=== PATIENT | female | born 1995 | race Caucasian/White ===

== ENCOUNTER 2016-11-27 13:13 | Inpatient (IN) | payer MEDICAID ==
[~2016-11-27] VITALS: Ht 157.5 cm; Wt 65.0 kg
[2016-11-27 13:49] VITALS: Ht 157.5 cm; Wt 65.0 kg
[2016-11-27 13:50] VITALS: BP 106/59; PULSE 99; RESP 18
[2016-11-27] MEDS ORDERED: OXYTOCIN 30 UNITS/LR 500 ML IV SCH ×2 (14:00)
[2016-11-27] MEDS ORDERED: OXYTOCIN 30 UNITS/LR 500 ML IV PRN (14:00)
[2016-11-27] MEDS ORDERED: IBUPROFEN 600 MG TAB PO PRN (14:00)
[2016-11-27] MEDS ORDERED: CARBOPROST 250 MCG INJ IM PRN (14:00)
[2016-11-27] MEDS ORDERED: BUTORPHANOL 2 MG INJ IV PRN (14:00)
[2016-11-27] MEDS ORDERED: METHYLERGONOVINE 0.2 MG INJ IM PRN (14:00)
[2016-11-27] MEDS ORDERED: MISOPROSTOL 200 MCG TAB PR PRN (14:00)
[2016-11-27] MEDS ORDERED: LACTATED RINGER'S 1,000 ML IV PRN (14:00)
[2016-11-27] MEDS ORDERED: LIDOCAINE 1% (MPF) 30 ML INJ INJ PRN (14:00)
[2016-11-27] MEDS: LACTATED RINGER'S 1,000 ML IV SCH ×2 (15:00→21:43)
[2016-11-27 15:17] LABS: BASOPHILS % 0.3 % (0.0-2.0); EOSINOPHILS # 0.1 10^3/ul (0.0-0.5); EOSINOPHILS % 0.7 % (0.0-7.0); HEMATOCRIT 28.3 % (37.0-47.0); HEMOGLOBIN 9.2 g/dl (12.0-16.0); LYMPHOCYTES # 1.6 10^3/ul (0.8-2.9); LYMPHOCYTES % 21.5 % (15.0-51.0); MEAN CORPUSCULAR HGB CONC 32.5 g/dl (32.0-37.0); MEAN CORPUSCULAR VOLUME 79.9 fl (82.0-101.0); MEAN PLATELET VOLUME 10.4 fl (7.4-10.4); MONOCYTE # 0.5 10^3/ul (0.3-0.9); MONOCYTES % 6.6 % (0.0-11.0); NEUTROPHIL # 5.3 10^3/ul (1.6-7.5); NEUTROPHILS % 70.2 % (39.0-77.0); PLATELET COUNT 195 10^3/UL (140-415); RED BLOOD COUNT 3.54 10^6/ul (4.20-5.40); RED CELL DISTRIBUTION WIDTH 14.3 % (11.5-14.5); WHITE BLOOD COUNT 7.5 10^3/ul (4.8-10.8)
[2016-11-27 15:31] LABS: INR 1.04; PROTIME 13.6 Sec (12.2-14.2); PT RATIO 1.1
[2016-11-27 15:32] LABS: PARTIAL THROMBOPLASTIN TIME 22.2 Sec (25.0-35.0)
[2016-11-27] MEDS ORDERED: DINOPROSTONE 10 MG VAG SUPP VAG ONE (16:00)
[2016-11-28] MEDS: LACTATED RINGER'S 1,000 ML IV SCH ×3 (05:18→23:01)
[2016-11-28] MEDS: OXYTOCIN 30 UNITS/LR 500 ML IV SCH ×2 (05:30→21:06)
--- NOTE | 2016-11-28 17:20 | HP ---
Date/Time of Note Date/Time of Note DATE: 11/28/16 TIME: 16:31 OB - History Hx of Present Free Text/Dictation 21 years old female 1 0 2 01, 39 weeks and 2 days admitted to [facility] for induction of labor suspected suspected poor growth, on admission pelvic examination, cervix 1 cm dilated 50% effaced vertex at -3 station, this patient has been under the care of the [facility] and aside from poor growth her was not complicated with gestational diabetes or -induced hypertension. 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 Chief Complaint: Induction of labor for poor growth Estimated Due Date: Dec 02, 2016 : 4 Para: 1 Spontaneous : 2 Care: Good Care Ultrasounds: Normal mid trimester US Obstetrical Complications: None Medical Complications: None Past Family/Social History * Past Medical, Surgical, Family and Obstetric Histories reviewed from chart. Rubella: immune RPR/VDRL: Negative GBS Status: Negative HBsAG: Negative OB Admission Exam Vital Signs Vital Signs Vital Signs Date Time Temp Pulse Resp B/P Pulse Ox O2 Delivery O2 Flow Rate FiO2 11/27/16 13:50 98.1 99 18 106/59 Room Air Physical Exam HEENT: WNL Heart: Rhythm Normal Lungs: Clear, Equal Abdomen: WNL Extremities: Normal Reflexes: Normal Cervical Dilatation: 1cm Effacement: 50% Station: -3 Membranes: Intact Heart Rate: 130's Accelerations: Accelerations Present Decelerations: No Decelerations Varibility: Moderate Last 72 hours Lab Results CBC & BMP 11/27/16 15:00 OB Assessment/Plan Reason for admission: induction of labor Plan: Other (Induction discussed with the patient to be induced by Cervidil vaginal insertion once cervical dilatation at three centimeters Pitocin IV infusion will follow) Induction Method: other (21 years old 9 weeks and 2 days admitted for induction for poor growth plan of Cervidil induction to follow with Pitocin IV infusion discussed with the patien complications of induction intolerance to induction all her questions answered she would like to proceed with the plan of induction) ANTON KAUFMAN MD Nov 28, 2016 17:10
--- NOTE | 2016-11-28 21:13 | QN ---
Documentation Comment PATIENT WAS ADMITTED FOR INDUCTION FOR RESTRICTED GROWTH CERVIDIL X1 F/B PITOCIN 3/50%/-2 ARM CLEAR START PITOCIN ZIGGY RAZA MD Nov 28, 2016 21:13
[2016-11-28] MEDS ORDERED: AZITHROMYCIN 250 MG TAB PO ONE (21:30)
--- NOTE | 2016-11-29 03:56 | LDN ---
Date/Time of Note Date/Time of Note DATE: 11/29/16 TIME: 03:53 Delivery Summary Weeks of Gestation [id number] Placenta Delivered: Spontaneously Meconium: none Episiotomy: No Perineal laceration: 0 Anesthesia type: None Estimated blood loss: 100 Sponge & Needle done & correct: Yes All needle counts correct: Yes Any foreign bodies felt in the: No Problems: Delivery Information Sex Infant Sex: female Apgars 1 Minute: 9 5 Minute: 9 Suctioning Nose & mouth suctioned at ronal: Yes Delee suction performed: No Umbilical Cord Umbilical cord with: 3 Vessels Cord presentations: no nuchal cord Cord Blood was obtained: Yes Mother & Baby Disposition Disposition Mom & Baby to Maternity; Good: Yes Mom transferred to: Other Baby to NICU: No () ZIGGY RAZA MD Nov 29, 2016 03:56
[2016-11-29] MEDS ORDERED: OXYTOCIN 30 UNITS/LR 500 ML IV PRN (04:30)
[2016-11-29] MEDS ORDERED: METHYLERGONOVINE 0.2 MG INJ IM PRN (04:30)
[2016-11-29] MEDS ORDERED: ZOLPIDEM 5 MG TAB PO PRN (04:30)
[2016-11-29] MEDS ORDERED: WITCH HAZEL/GLYCERIN PAD PR PRN (04:30)
[2016-11-29] MEDS ORDERED: LANOLIN 7 GM TUBE TOP PRN (04:30)
[2016-11-29] MEDS ORDERED: OXYCODONE/ASPIRIN (4.88/325) TAB PO PRN ×2 (04:30)
[2016-11-29] MEDS ORDERED: CARBOPROST 250 MCG INJ IM PRN (04:30)
[2016-11-29] MEDS ORDERED: BENZOCAINE 20% 56 ML SPRAY TOP PRN (04:30)
[2016-11-29] MEDS ORDERED: MISOPROSTOL 200 MCG TAB PR PRN (04:30)
[2016-11-29 04:45] VITALS: BP 116/70; PULSE 65; RESP 20
[2016-11-29] MEDS: IBUPROFEN 600 MG TAB PO SCH ×4 (05:30→23:33)
[2016-11-29 08:00] VITALS: BP 110/57; PULSE 66; RESP 18
[2016-11-29] MEDS: SENNA/DOCUSATE NA (8.6MG/50MG) TAB PO SCH ×2 (08:48→20:52)
--- NOTE | 2016-11-29 14:10 | DS ---
Date/Time of Note Date/Time of Note DATE: 11/29/16 TIME: 14:08 Discharge Summary Admission/Discharge Info Admit Date/Time Nov 27, 2016 at 13:13 Discharge Date/Time November 29, 2016 at 1410 Discharge Diagnosis Day 2 post normal vaginal delivery Patient Condition: Good Procedures Normal vaginal delivery Hx of Present Illness Term in labor Hospital Course Satisfactory uneventful Follow-up Plan instruction given recommended patient to make appointment to be seen at the clinic in 2 weeks Primary Care Provider Care Physician No Primary Time spent on discharge: < 30 minutes ANTON KAUFMAN MD Nov 29, 2016 14:10
--- NOTE | 2016-11-29 14:12 | PD.PPDC ---
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
[2016-11-29] MEDS ORDERED: INFLUENZA VIRUS VACCINE 0.5 ML SYG IM* ONE (15:00)
[2016-11-29 15:35] VITALS: BP 95/54; RESP 18
[2016-11-29 19:40] VITALS: BP 108/58; PULSE 70; RESP 18
[2016-11-30 04:10] VITALS: BP 94/54; PULSE 63; RESP 18
[2016-11-30] MEDS: IBUPROFEN 600 MG TAB PO SCH ×4 (05:36→23:53)
[2016-11-30 08:00] VITALS: BP 107/63; RESP 18
[2016-11-30 08:17] LABS: BASOPHILS % 0.1 % (0.0-2.0); EOSINOPHILS # 0.1 10^3/ul (0.0-0.5); HEMATOCRIT 23.1 % (37.0-47.0); HEMOGLOBIN 7.3 g/dl (12.0-16.0); LYMPHOCYTES % 29.5 % (15.0-51.0); MEAN CORPUSCULAR HEMOGLOBIN 25.6 pg (29.0-33.0); MEAN CORPUSCULAR HGB CONC 31.6 g/dl (32.0-37.0); MEAN CORPUSCULAR VOLUME 81.1 fl (82.0-101.0); MEAN PLATELET VOLUME 10.4 fl (7.4-10.4); MONOCYTE # 0.6 10^3/ul (0.3-0.9); MONOCYTES % 8.7 % (0.0-11.0); NEUTROPHIL # 4.1 10^3/ul (1.6-7.5); NEUTROPHILS % 60.3 % (39.0-77.0); PLATELET COUNT 156 10^3/UL (140-415); RED BLOOD COUNT 2.85 10^6/ul (4.20-5.40); RED CELL DISTRIBUTION WIDTH 14.6 % (11.5-14.5); WHITE BLOOD COUNT 6.8 10^3/ul (4.8-10.8)
[2016-11-30] MEDS: SENNA/DOCUSATE NA (8.6MG/50MG) TAB PO SCH ×2 (08:52→21:08)
--- NOTE | 2016-11-30 12:22 | QN ---
Documentation Comment PPD#1is stable afebrile No VB +BM +voids VS stable Gen NAD Abd soft NT ND Genitalia No blood at perinium --->discharge plan tomorrow YARY FARRELL M.D. Nov 30, 2016 12:22
[2016-11-30 16:00] VITALS: BP 103/53; PULSE 63; RESP 18
[2016-11-30 19:50] VITALS: BP 109/58; PULSE 57; RESP 18
[2016-12-01 04:05] VITALS: BP 109/58; PULSE 56; RESP 17
[2016-12-01] MEDS: IBUPROFEN 600 MG TAB PO SCH ×3 (05:35→18:29)
[2016-12-01 08:45] VITALS: BP 115/74; PULSE 56; RESP 16
[2016-12-01] MEDS ORDERED: DIPHTH/TET/ACEL PERTUSS (ADULT) 0.5 ML VIAL IM* ONE (09:00)
[2016-12-01] MEDS: SENNA/DOCUSATE NA (8.6MG/50MG) TAB PO SCH (09:30)
--- NOTE | 2016-12-01 15:10 | DS ---
Date/Time of Note Date/Time of Note DATE: 12/01/16 TIME: 15:09 Obstetrical Discharge Record Final Diagnosis Final Diagnosis: Term delivered Vaginal Delivery Obstetrical Delivery: Spontaneous Complications Other Induction: Yes Condition on Discharge Physical Assessment Voiding: Yes Fundus: Firm Calf Tenderness: No Patient Condition: Good CAROLINE ADAMS Dec 01, 2016 15:10
== END 2016-12-01 18:59 | disposition home or self-care (01) | DRG 775 ==
LOC: L-D 13:13 → PP1 11-29 04:35
PROVIDERS: ADMIT Obstetrics & Gynecology; ATTEND Obstetrics & Gynecology
PROC: 3E0P7VZ Introduction of Hormone into Female Reproductive, Via Natural or Artificial Opening (ICD-10-PCS; 2016-11-27)
PROC: 10E0XZZ Delivery of Products of Conception, External Approach (ICD-10-PCS; principal; 2016-11-29)
PROC: 3E0234Z Introduction of Serum, Toxoid and Vaccine into Muscle, Percutaneous Approach (ICD-10-PCS; 2016-11-29)
DX: O36.5930 Maternal care for other known or suspected poor fetal growth, third trimester, not applicable or unspecified (principal); Z23 Encounter for immunization; Z37.0 Single live birth; Z3A.39 39 weeks gestation of pregnancy
CPT/HCPCS: 85025; 85610; 85730; 86592; 86900; 86901; 87340; 90686; 90715; A4310; J2590; J7120